=== PATIENT | male | born 1960 ===

== ENCOUNTER → 2025-02-06 08:30 | Outpatient (REF) | payer BC, SELFPAY | LOC: CLAB 08:30 | PROVIDERS: ATTENDING PHYSICIAN Otolaryngology | DX: J32.4 Chronic pansinusitis (principal); J32.9 Chronic sinusitis, unspecified; J34.3 Hypertrophy of nasal turbinates; J34.89 Other specified disorders of nose and nasal sinuses; J34.2 Deviated nasal septum | CPT/HCPCS: 88304 ==